=== PATIENT | female | born 1955 | race Caucasian/White ===

== ENCOUNTER 2021-05-30 22:19 | Emergency (ER) | payer MEDICARE, OTHER ==
[~2021-05-30] VITALS: Ht 160 cm; Wt 104.5 kg
[2021-05-30 23:34] VITALS: BP 139/91
--- NOTE | 2021-05-31 00:08 | PHYS DOC ---
Adult General Chief Complaint Chief Complaint: LACERATION/AVULSION HPI HPI Patient is a 65-year-old female, otherwise healthy presents with left proximal forearm laceration. States she was in her garage, was bending down, fell forward onto her elbow. States she had some bleeding for a few minutes and then it stopped. States she is not up-to-date on her tetanus vaccinations. Review of Systems Review of Systems Review of systems otherwise unremarkable except noted in HPI Physical Exam Physical Exam Constitutional: Well developed, well nourished, no acute distress, non-toxic appearance. [] Skin: Warm, dry, no erythema, no rash. [] Back: No tenderness, no CVA tenderness. [] Extremities: Mild tenderness at proximal posterior forearm, 3 cm linear laceration, bleeding controlled. Neurologic: Alert and oriented X 3, no focal deficits noted. [] Psychologic: Affect normal, judgement normal, mood normal. [] EKG EKG [] Radiology/Procedures Radiology/Procedures [] Heart Score C/O Chest Pain: No Risk Factors: Risk Factors: DM, Current or recent (<one month) smoker, HTN, HLP, family history of CAD, obesity. Risk Scores: Risk Factors: DM, Current or recent (<one month) smoker, HTN, HLP, family history of CAD, obesity. Course & Med Decision Making Course & Med Decision Making Patient is a 65-year-old female presents with a left forearm laceration Vital signs not concerning. Physical exam noted above. Patient denies need for pain medication at this time. Tetanus updated. Wound extensively cleaned. Patient stated she would prefer not to get sutures and would prefer glue and Steri-Strips. Discussed with patient the risks of infection and opening of the wound. Patient states she would watch it and be careful. Advised to follow-up with primary care physician in 3 to 5 days for a wound check. Gave return precautions to the ED. Patient grateful, verbalized understanding and agreed with plan of discharge. [] Dragon Disclaimer Dragon Disclaimer This electronic medical record was generated, in whole or in part, using a voice recognition dictation system. Departure Departure: Impression: Primary Impression: Laceration Disposition: HOME / SELF CARE / HOMELESS Condition: GOOD Referrals: NON,STAFF (PCP) NYLA FORBES MD Patient Instructions: Tissue Adhesive Wound Care Additional Instructions: Thank you for coming into the emergency department tonight and allowing us to take care of you. Please read all of the attached information very carefully to go back over what we discussed. Please keep the area clean, dry and bandaged and covered with the adhesive bandage given to you and demonstrated. Your tetanus was updated. Please call your primary care physician first thing in the morning to set up a follow-up visit for a wound check in approximately 5 days. Please come back to the emergency department immediately with new or concerning symptoms as discussed. CHARLES DAEL MD May 31, 2021 00:07
[2021-05-31] MEDS ORDERED: DIPH,PERTUSS(ACELL),TET VAC/PF 0.5 ML SYRINGE. VAX IM ONE (00:30)
== END 2021-05-31 00:30 | disposition home or self-care (01) ==
LOC: ER 22:19
DX: S51.812A Laceration without foreign body of left forearm, initial encounter (principal); W18.39XA Other fall on same level, initial encounter; Y93.89 Activity, other specified; Y92.59 Other trade areas as the place of occurrence of the external cause; Y99.8 Other external cause status
CPT/HCPCS: 90471; 90715; 99283